=== PATIENT | female | born 1965 | race Two or more races ===

== ENCOUNTER → 2023-06-14 13:38 | Day surgery (SDC) | payer OTHER, SELFPAY ==
[2023-06-14] VITALS (8 sets, daily range): BP systolic 102–121; BP diastolic 65–92; BMI 24.4
[2023-06-14] MEDS: NORMOSOL-R 1000 IV (14:12)
--- NOTE | 2023-06-14 21:08 | PTCARENOTE ---
patient in pacu for phase I and II, awake and alert with good regional block. no pain, vss, anxious for discharge - dr huerta called cousin to pick pt up, updated on surgery and post op plan. 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
advised to call dr huerta's office for follow up visit. assisted with sling,
== END ==
LOC: SDS 13:38
PROVIDERS: ATTENDING PHYSICIAN Orthopaedic Surgery Hand Surgery; FAMILY PHYSICIAN Family Medicine
DX: S52.572A Other intraarticular fracture of lower end of left radius, initial encounter for closed fracture (principal); X58.XXXA Exposure to other specified factors, initial encounter; Y09 Assault by unspecified means
CPT/HCPCS: 25609; C1713

== ENCOUNTER 2023-07-09 06:32 | Day surgery (SDC) | payer OTHER, SELFPAY ==
[2023-07-09] VITALS (8 sets, daily range): BP systolic 118–150; BP diastolic 73–88; BMI 22.1
[2023-07-09] MEDS: NORMOSOL-R 1000 IV (14:06)
--- NOTE | 2023-07-09 14:08 | PTCARENOTE ---
Patient states that she has no one available to her tonight to stay with her post op. Dr. Woodall notified and awaiting callback/orders that he is aware.
--- NOTE | 2023-07-09 14:10 | PTCARENOTE ---
Patient is in pain and is requesting a dose of her Hydrocodone that she has with her. Dr. Malin notified and orders for patient to take a dose of her Hydrocodone pre-op. Will monitor patient.
--- NOTE | 2023-07-09 14:21 | PTCARENOTE ---
report given to Coral SHAY.
[2023-07-09] MEDS: TORADOL 15 MG IV (16:09)
== END 2023-07-09 17:32 | disposition home or self-care (01) ==
LOC: SDS 06:32
PROVIDERS: ATTENDING PHYSICIAN Orthopaedic Surgery Hand Surgery; FAMILY PHYSICIAN Family Medicine
DX: M96.840 Postprocedural hematoma of a musculoskeletal structure following a musculoskeletal system procedure (principal); Y83.4 Other reconstructive surgery as the cause of abnormal reaction of the patient, or of later complication, without mention of misadventure at the time of the procedure; S60.212A Contusion of left wrist, initial encounter; X58.XXXA Exposure to other specified factors, initial encounter; Z98.890 Other specified postprocedural states; Z87.81 Personal history of (healed) traumatic fracture
CPT/HCPCS: 25028